=== PATIENT | male | born 1960 | race Caucasian/White ===

== ENCOUNTER 2022-02-14 13:39 | Emergency (ER) | payer OTHER ==
[2022-02-14 14:03] LABS: BASOPHIL 1.3 % (0-2); HCT 38.9 % (42.0-52.0); HGB 13.3 g/dl (13.2-18.0); LYMPHOCYTE 14.6 % (15-48); MCH 33.8 pg (25.0-31.0); MCHC 34.2 g/dL (32.0-36.0); MCV 98.7 fL (78.0-100.0); MONOCYTE 8.9 % (0-12); MPV 10.1 fL (6.0-9.5); NEUTROPHIL 73.8 % (41-80); NRBC 0; PLT 107 K/uL (150-400); RBC 3.94 M/uL (4.70-6.00); RDW 13.8 % (11.5-14.0); WBC 5.3 K/uL (4.0-10.5)
[2022-02-14 14:13] LABS: INR 1.5 (0.9-1.2); PROTHROMBIN TIME 17.6 SECONDS (11.9-13.9); PTT 28.8 SECONDS (24.9-34.6)
[2022-02-14 14:48] LABS: ALBUMIN 2.5 g/dL (3.4-5.0); BILIRUBIN - TOTAL 2.7 mg/dL (0.2-1.0); CREATININE 0.71 mg/dL (0.67-1.17); GLOBULIN (CALCULATION) 3.4 g/dL; POTASSIUM 4.3 mmol/L (3.5-5.1); TOTAL PROTEIN 5.9 g/dL (6.4-8.2)
[2022-02-14 14:53] LABS: LACTIC ACID 2.5 mmol/L (0.4-1.9)
[2022-02-14 15:54] LABS: BILIRUBIN NEGATIVE (NEGATIVE); BLOOD 3+ Ery/uL (NEGATIVE); CLARITY CLEAR (CLEAR); GLUCOSE (U) NORMAL (NORMAL); LEUKOCYTES NEGATIVE Leu/uL (NEGATIVE); NITRITE NEGATIVE (NEGATIVE); PROTEIN NEGATIVE (NEGATIVE); SPECIFIC GRAVITY >=1.030 (1.001-1.030); UROBILINOGEN 0.2 mg/dL (0.2-1.0)
[2022-02-14 15:55] LABS: COLOR AMBER (YELLOW)
[2022-02-14 15:58] LABS: AMPHETAMINES NEGATIVE (NEGATIVE); BARBITURATES NEGATIVE (NEGATIVE); ECSTASY (MDMA) NEGATIVE (NEGATIVE); MARIJUANA (THC) NEGATIVE (NEGATIVE); METHADONE NEGATIVE (NEGATIVE); OPIATES NEGATIVE (NEGATIVE); OXYCODONE NEGATIVE (NEGATIVE)
[2022-02-14 16:05] LABS: URINARY RBC TNTC
[2022-02-14 16:06] LABS: SQUAMOUS EPITHELIAL CELLS RARE; URINARY WBC RARE
[2022-02-14 18:19] LABS: BASOPHIL 0.6 % (0-2); EOSINOPHIL 0.3 % (0-5); HCT 35.4 % (42.0-52.0); HGB 12.1 g/dl (13.2-18.0); LYMPHOCYTE 11.7 % (15-48); MCH 33.7 pg (25.0-31.0); MCHC 34.2 g/dL (32.0-36.0); MCV 98.6 fL (78.0-100.0); MONOCYTE 8.8 % (0-12); MPV 10.2 fL (6.0-9.5); NEUTROPHIL 78.3 % (41-80); NRBC 0; RBC 3.59 M/uL (4.70-6.00); RDW 13.9 % (11.5-14.0); WBC 6.2 K/uL (4.0-10.5)
[2022-02-14 18:23] LABS: PLT 101 K/uL (150-400)
[2022-02-14 18:34] LABS: CREATININE 0.67 mg/dL (0.67-1.17); POTASSIUM 4.3 mmol/L (3.5-5.1)
[2022-02-15 00:56] LABS: HCT 34.9 % (42.0-52.0); HGB 11.9 g/dL (13.2-18.0)
== END 2022-02-15 01:10 | disposition other institution (70) ==
LOC: FER 13:39
PROVIDERS: Emergency Medicine; Internal Medicine; Nurse Practitioner Family
DX: L76.22 Postprocedural hemorrhage of skin and subcutaneous tissue following other procedure (principal); I85.01 Esophageal varices with bleeding; D62 Acute posthemorrhagic anemia; F17.200 Nicotine dependence, unspecified, uncomplicated; Z98.890 Other specified postprocedural states; Y83.8 Other surgical procedures as the cause of abnormal reaction of the patient, or of later complication, without mention of misadventure at the time of the procedure
CPT/HCPCS: 36415; 36600; 71045; 80048; 80053; 80305; 81001; 82803; 83605; 84484; 85014; 85018; 85025; 85610; 85730; 86922; 93005; 96361; 96374; J2310; P9016; Q9967